=== PATIENT | male | born 1980 | race African-American/Black ===

== ENCOUNTER 2019-08-08 13:50 | Emergency (ER) | payer OTHER ==
[~2019-08-08] VITALS: Ht 142.2 cm; Wt 59.0 kg
[2019-08-08 14:24] LABS: PLATELET COUNT 303 K/uL (142-355)
[2019-08-08 14:30] VITALS: TEMP 98.9
[2019-08-08 14:35] LABS: POTASSIUM 3.8 mmol/L (3.6-5.2)
[2019-08-08] MEDS ORDERED: CARBAMAZEPIN400 MG PO (14:41)
[2019-08-08 17:00] VITALS: BP 138/95
== END 2019-08-08 17:20 | disposition short-term general hospital (02) ==
LOC: ED 14:12
PROVIDERS: Emergency Medicine
DX: R56.9 Unspecified convulsions (principal); F20.9 Schizophrenia, unspecified
CPT/HCPCS: 36415; 80053; 80307; 81000; 83735; 85027; 87502; 87651; 96365; 96375; 96376; 99285; J1630; J2060; Q2009

== ENCOUNTER 2019-08-08 17:25 | Outpatient (CLI) | payer OTHER ==
[~2019-08-08 17:25] MED LIST: CARBAMAZEPIN400 MG PO
== END 2019-08-08 18:45 | disposition short-term general hospital (02) ==
LOC: AMB 17:25
DX: R56.9 Unspecified convulsions (principal); F20.9 Schizophrenia, unspecified
CPT/HCPCS: A0425; A0429